=== PATIENT | male | born 1975 | race Caucasian/White ===

== ENCOUNTER 2023-01-27 23:19 | Emergency (ER) | payer OTHER ==
[2023-01-27 23:27] VITALS: BP 179/85; PULSE 54; RESP 18; TEMP 98.1; BMI 31.7
== END 2023-01-28 00:49 | disposition home or self-care (01) ==
LOC: JER 23:19
PROC: 3E033GC Introduction of Other Therapeutic Substance into Peripheral Vein, Percutaneous Approach (ICD-10-PCS; principal; 2023-01-28)
DX: R22.0 Localized swelling, mass and lump, head (principal); T78.40XA Allergy, unspecified, initial encounter; H02.843 Edema of right eye, unspecified eyelid; H02.846 Edema of left eye, unspecified eyelid
CPT/HCPCS: 99284-25